=== PATIENT | male | born 1950 | race Caucasian/White ===

== ENCOUNTER 2017-05-29 19:41 | Emergency (ER) | payer MEDICARE, OTHER ==
[~2017-05-29] VITALS: Ht 170.2 cm; Wt 95.3 kg
[2017-05-29 19:45] VITALS: BP 137/65
--- NOTE | 2017-05-29 19:55 | NUR ---
RECEIVED A CALL FROM DR ARANDA, HE WOULD LIKE TO BE NOTIFIED IF PATIENT WILL BE ADMITTED OR DISCHARGED.
--- NOTE | 2017-05-29 20:20 | NUR ---
CALLED TRANSPORT [place] 30 [place] [id number]
--- NOTE | 2017-05-29 20:42 | NUR ---
JUAN J ARANDA [phone] LEFT A G
--- NOTE | 2017-05-29 20:50 | NUR ---
PT NOW ASK FOR THE ULTRAM SOMETHING FOR THE PAIN.
== END 2017-05-29 20:56 | disposition home or self-care (01) ==
LOC: ER 19:42
DX: L03.115 Cellulitis of right lower limb (principal); I10 Essential (primary) hypertension; J44.9 Chronic obstructive pulmonary disease, unspecified
CPT/HCPCS: A4606; Z7610

== ENCOUNTER 2020-04-11 17:25 | Emergency (ER) | payer MEDICARE, OTHER ==
[~2020-04-11] VITALS: Ht 177.8 cm; Wt 106.6 kg
[2020-04-11] MEDS ORDERED: ACETAMINOPHEN ES 500 MG TABLET ONE (17:52)
[2020-04-11] MEDS ORDERED: ACETAMINOPHEN ES 500 MG TABLET PO ONE (18:00)
[2020-04-11 18:47] VITALS: BP 116/68
--- NOTE | 2020-04-11 18:48 | NUR ---
patient bibra from home, c/o left leg pain/swelling on room air, breathing evenly and unlabored. kept comfortable, will continue to monitor accordingly.
--- NOTE | 2020-04-11 19:05 | NUR ---
REPORT RECEIVED FROM ANAHI BROWN FOR SUE
--- NOTE | 2020-04-11 19:58 | NUR ---
Patient discharged to home in stable condition. Written and verbal after care instructions given. Patient verbalizes understanding of instruction.pt. ambulatory with a steady gait
== END 2020-04-11 19:59 | disposition home or self-care (01) ==
LOC: ER 17:37
DX: S80.12XA Contusion of left lower leg, initial encounter (principal); I10 Essential (primary) hypertension; J44.9 Chronic obstructive pulmonary disease, unspecified; Z98.890 Other specified postprocedural states; V23.4XXA Motorcycle driver injured in collision with car, pick-up truck or van in traffic accident, initial encounter; Y93.55 Activity, bike riding; Y92.413 State road as the place of occurrence of the external cause; Y99.8 Other external cause status
CPT/HCPCS: 73590-TC; 73610-TC

== ENCOUNTER 2021-07-04 20:08 | Emergency (ER) | payer MEDICARE, OTHER ==
[~2021-07-04] VITALS: Ht 180.3 cm; Wt 95.3 kg
[2021-07-04 20:13] VITALS: BP 123/76
[2021-07-04 21:13] LABS: BASOPHILS % (AUTO) 0.2 % (0.0-2.0); EOSINOPHILS % (AUTO) 0.5 % (0.0-6.0); HEMATOCRIT 40 % (39-51); HEMOGLOBIN 12.9 g/dL (13.5-17.5); LYMPHOCYTES # (AUTO) 0.7 K/uL (0.8-4.8); LYMPHOCYTES % (AUTO) 4.9 % (20.0-44.0); MEAN CORPUSCULAR HGB CONC 32 g/dl (31.0-36.0); MEAN CORPUSCULAR VOLUME 99 fL (80-96); MONOCYTES # (AUTO) 0.4 K/uL (0.1-1.30); MONOCYTES % (AUTO) 2.7 % (2.0-12.0); NEUTROPHILS # (AUTO) 12.8 K/uL (1.8-8.9); NEUTROPHILS % (AUTO) 91.7 % (43.0-81.0); PLATELET COUNT (AUTO) 275 K/uL (150-450); RED BLOOD CELL COUNT(AUTO) 4.04 MIL/uL (4.5-6.0); WHITE BLOOD COUNT (AUTO) 13.9 K/uL (4.3-11.0)
[2021-07-04 21:20] LABS: ALANINE AMINOTRANSFERASE 44 U/L (12-78); ALCOHOL, BLOOD < 3 mg/dL (0-0); ALKALINE PHOSPHATASE 111 U/L (46-116); ASPARTATE AMINOTRANSFERASE 41 U/L (15-37); BILIRUBIN,DIRECT 0.1 mg/dL (0.0-0.2); BILIRUBIN,TOTAL 0.3 mg/dL (0.2-1.0); CALCIUM, SERUM 8.8 mg/dL (8.5-10.1); CARBON DIOXIDE 22 mmol/L (21-32); CHLORIDE 98 mmol/L (98-107); CREATININE 1.4 mg/dL (0.6-1.3); GLUCOSE 341 mg/dL (74-106); POTASSIUM 4.4 mmol/L (3.5-5.1); SODIUM SERUM 135 mmol/L (136-145); TOTAL PROTEIN, SERUM 7.9 g/dL (6.4-8.2); UREA NITROGEN, BLOOD 21 mg/dL (7-18)
[2021-07-04 21:21] LABS: CREATINE KINASE, TOTAL 159 U/L (39-308)
[2021-07-04 21:30] LABS: ACETAMINOPHEN < 10 ug/ml (10-30)
--- NOTE | 2021-07-04 21:36 | NUR ---
PATIENT REFUSED CXR, DR DC IS AWARE
--- NOTE | 2021-07-04 21:38 | NUR ---
URINE SENT TO LAB
[2021-07-04 22:00] LABS: BILIRUBIN,URINE NEGATIVE (NEGATIVE); COLOR,URINE YELLOW (YELLOW); LEUKOCYTE ESTERASE ,URINE NEGATIVE (NEGATIVE); NITRITE, URINE NEGATIVE (NEGATIVE); PROTEIN,URINE 30 mg/dl (NEGATIVE); UGLUCOSE >=1000 mg/dL (NEGATIVE); UROBILINOGEN,URINE 0.2 EU/dL (0.2)
[2021-07-04 22:17] LABS: BACTERIA,URINE RARE /HPF (None Seen); WBC,URINE 0-2 /HPF (0-3)
[2021-07-04 22:18] LABS: HYALINE CASTS, URINE Few /LPF (None Seen); MUCUS,URINE Few /LPF (None Seen)
[2021-07-04] MEDS ORDERED: NALO4SPR NS (22:26)
--- NOTE | 2021-07-04 22:30 | NUR ---
Patient does not wish to proceed with medical care recommended by Lenin Boone. Patient given information related to possible complications, up to and including , which could occur as a result of leaving the hospital at this time. Patient verbalizes understanding of risks involved due to leaving against medical advice. Patient has signed AMA form.
--- NOTE | 2021-07-04 22:31 | NUR ---
IV removed. Catheter intact and site benign. Pressure and 4x4 applied to site. No bleeding noted. Pt ambulatory with a steady gait
== END 2021-07-04 22:32 | disposition left against medical advice (07) ==
LOC: ER 20:10
DX: T40.411A Poisoning by fentanyl or fentanyl analogs, accidental (unintentional), initial encounter (principal); I44.0 Atrioventricular block, first degree; R94.31 Abnormal electrocardiogram [ECG] [EKG]; R94.4 Abnormal results of kidney function studies; I10 Essential (primary) hypertension; J44.9 Chronic obstructive pulmonary disease, unspecified; Z98.890 Other specified postprocedural states; Z60.2 Problems related to living alone; Y92.89 Other specified places as the place of occurrence of the external cause
CPT/HCPCS: 36415; 80048-TC; 80076-TC; 81001; 82550-TC; 84484-TC; 85025-TC; G0480